=== PATIENT | male | born 1950 | race Caucasian/White ===

== ENCOUNTER 2017-04-05 00:11 | Inpatient (IN) | payer MEDICARE, MEDICAID ==
[~2017-04-05] VITALS: Ht 175.3 cm; Wt 64.4 kg
[~2017-04-05 00:11] MED LIST: ALBU6.7H IH; CYCL10 PO; DIAZ10 PO; DOCU250C90 PO; FLUR30CA13 PO; IPRAHFA IH; IPRNEB IH; NITR.4 SL; PANT20TA12 PO; RANI150T12 PO; RISP2 PO; SENN-34 PO
[2017-04-05] MEDS ORDERED: QUEtiapine FUMARATE 100 MG TABLET PO PRN (02:30)
[2017-04-05 03:10] VITALS: BP 127/54
[2017-04-05] MEDS ORDERED: PNEUMOCOCCAL VACCINE POLYVALENT 0.5 ML VIAL [PPSV23] IM ONE (03:30)
[2017-04-05] MEDS ORDERED: INFLUENZA VIRUS VACCINE QVS 2017-18 (3YR+)/PF 60 MCG/0.5 ML SYRINGE IM ONE (03:30)
[2017-04-05] MEDS ORDERED: -PHARMACY VACCINE NOTE- MISC ONE ×2 (03:30)
[2017-04-05] MEDS ORDERED: LOPERAMIDE HCL 2 MG CAPSULE PO PRN (07:15)
[2017-04-05] MEDS ORDERED: PETROLATUM,WHITE 71 GM JELLY TP PRN (07:15)
[2017-04-05] MEDS ORDERED: ACETAMINOPHEN 325 MG TABLET PO PRN (07:15)
[2017-04-05] MEDS ORDERED: BENZOCAINE/MENTHOL LOZENGE MM PRN (07:15)
[2017-04-05] MEDS ORDERED: ONDANSETRON HCL 4 MG TABLET PO PRN (07:15)
[2017-04-05] MEDS ORDERED: MAG HYDROX/AL HYDROX/SIMETH ES 30 ML SUSPENSION UDCUP PO PRN (07:15)
[2017-04-05] MEDS ORDERED: MAGNESIUM HYDROXIDE SUSPENSION 30 ML UDCUP PO PRN (07:15)
[2017-04-05] MEDS ORDERED: BACITRACIN 28.4 GM OINTMENT TP PRN (07:15)
[2017-04-05] MEDS ORDERED: NITROGLYCERIN 0.4 MG SUBLINGUAL TABLET #25 SL PRN (07:15)
[2017-04-05] MEDS ORDERED: CloNIDine HCL 0.1 MG TABLET PO PRN (07:15)
[2017-04-05 07:52] LABS: BASOPHILS % (AUTO) 0.9 % (0.0-2.0); EOSINOPHILS % (AUTO) 2.2 % (1.0-6.0); HEMATOCRIT 37.8 % (41-53); LYMPHOCYTES % (AUTO) 50.1 % (22.0-44.0); MEAN CORPUSCULAR HEMOGLOBIN 33.8 pg (26.0-34.0); MEAN CORPUSCULAR HGB CONC 34.5 G/dL (31.0-37.0); MEAN CORPUSCULAR VOLUME 98 fL (80-100); MONOCYTES # (AUTO) 0.3 K/uL (0.1-1.0); MONOCYTES % (AUTO) 7.1 % (2.0-9.0); NEUTROPHILS # (AUTO) 1.6 K/uL (1.8-7.7); NEUTROPHILS % (AUTO) 39.7 % (40.0-70.0); PLATELET COUNT (AUTO) 237 K/uL (150-450); RED BLOOD CELL COUNT(AUTO) 3.85 MIL/uL (4.50-5.90); RED CELL DISTRIBUTION WIDTH 14.5 % (11.5-14.5)
[2017-04-05 08:04] LABS: HEMOGLOBIN A1C 5.6 % (4.5-6.2)
[2017-04-05 08:28] LABS: ALANINE AMINOTRANSFERASE 31 U/L (12-78); ALBUMIN 3.1 g/dL (3.4-5.0); ANION GAP 3 mmol/L (8-16); ASPARTATE AMINOTRANSFERASE 24 U/L (15-37); BILIRUBIN,TOTAL 0.4 mg/dL (0.1-1.0); CALCIUM, TOTAL 8.4 mg/dL (8.8-10.5); CARBON DIOXIDE 30 mmol/L (22-29); CHLORIDE 107 mmol/L (98-107); CHOL/HDL RATIO 2.2 (4.2-7.3); CREATININE 0.81 mg/dL (0.60-1.30); GLOMERULAR FILTR. RATE CALC > 60 mL/min (>60); POTASSIUM 4.4 mmol/L (3.5-5.1); SODIUM SERUM 140 mmol/L (136-145); THYROID STIMULATING HORMONE 1.25 uIU/mL (0.36-3.74); TOTAL PROTEIN, SERUM 5.3 g/dL (6.4-8.2); UREA NITROGEN, BLOOD 17 mg/dL (7-18)
[2017-04-05] MEDS ORDERED: DOCUSATE SODIUM 100 MG CAPSULE PO SCH (09:00)
[2017-04-05] MEDS: RANITIDINE HCL 150 MG TABLET PO SCH ×2 (09:00→16:26)
[2017-04-05] MEDS: OMEGA-3/DHA/EPA/FISH OIL 500 MG CAPSULE PO SCH (09:00)
[2017-04-05] MEDS ORDERED: FLUR30CA13 PO (09:12)
[2017-04-05] MEDS ORDERED: DICY10 PO (09:12)
[2017-04-05] MEDS ORDERED: RISP1 PO (09:12)
[2017-04-05] MEDS ORDERED: SENN-175 PO (09:12)
[2017-04-05] MEDS ORDERED: LOPE2 PO (09:12)
[2017-04-05] MEDS ORDERED: RANI150T7 PO (09:12)
[2017-04-05] MEDS ORDERED: PANT40TA25 PO (09:12)
[2017-04-05] MEDS ORDERED: ALBU8HFA IH (09:12)
[2017-04-05] MEDS ORDERED: CYCL10 PO (09:12)
[2017-04-05] MEDS ORDERED: DIAZ10 PO (09:12)
[2017-04-05] MEDS ORDERED: NITR.4 SL (09:12)
[2017-04-05] MEDS ORDERED: DSS100 PO (09:12)
[2017-04-05] MEDS: RisperiDONE 1 MG TABLET PO SCH (16:26)
[2017-04-05] MEDS ORDERED: ALBUTEROL SULFATE 2.5 MG/0.5 ML NEB SOLUTION NEB PRN (19:15)
[2017-04-05] MEDS ORDERED: IPRATROPIUM BROMIDE 0.5 MG/2.5 ML NEB SOLUTION NEB PRN (19:15)
[2017-04-06] MEDS: ALBUTEROL SULFATE HFA 90 MCG/PUFF 8 GM INHALER IH PRN (05:41)
[2017-04-06] MEDS ORDERED: LORazepam 2 MG/ML VIAL IM ONE (07:15)
[2017-04-06] MEDS ORDERED: DiphenhydrAMINE HCL 50 MG/ML VIAL IM ONE (07:15)
[2017-04-06] MEDS: OMEGA-3/DHA/EPA/FISH OIL 500 MG CAPSULE PO SCH (10:00)
[2017-04-06] MEDS: RANITIDINE HCL 150 MG TABLET PO SCH ×2 (10:00→17:00)
[2017-04-06] MEDS: IPRATROPIUM BROMIDE HFA 17 MCG/PUFF 12.9 GM INHALER IH SCH ×2 (10:00→17:00)
[2017-04-06] MEDS: PANTOPRAZOLE SODIUM 40 MG DR TABLET PO SCH (10:00)
[2017-04-06] MEDS: DICYCLOMINE HCL 10 MG CAPSULE PO SCH ×3 (10:00→17:00)
[2017-04-06] MEDS: RisperiDONE 1 MG TABLET PO SCH ×2 (10:00→17:00)
[2017-04-06] MEDS: DOCUSATE SODIUM 250 MG CAPSULE PO SCH ×2 (10:00→17:00)
[2017-04-06] MEDS: SENNA 187 MG TABLET PO SCH ×2 (10:00→17:00)
[2017-04-06 16:00] VITALS: BP 116/71
[2017-04-07 06:38] VITALS: BP 118/73
[2017-04-07 08:23] VITALS: BP 91/57
[2017-04-07] MEDS: PANTOPRAZOLE SODIUM 40 MG DR TABLET PO SCH (08:35)
[2017-04-07] MEDS: DOCUSATE SODIUM 250 MG CAPSULE PO SCH ×2 (08:35→17:00)
[2017-04-07] MEDS: SENNA 187 MG TABLET PO SCH ×2 (08:35→16:59)
[2017-04-07] MEDS: RANITIDINE HCL 150 MG TABLET PO SCH ×2 (08:35→17:00)
[2017-04-07] MEDS: DICYCLOMINE HCL 10 MG CAPSULE PO SCH ×3 (08:35→17:00)
[2017-04-07] MEDS: OMEGA-3/DHA/EPA/FISH OIL 500 MG CAPSULE PO SCH (08:35)
[2017-04-07] MEDS: RisperiDONE 1 MG TABLET PO SCH ×2 (08:37→17:00)
[2017-04-07] MEDS: IPRATROPIUM BROMIDE HFA 17 MCG/PUFF 12.9 GM INHALER IH SCH ×2 (08:43→17:00)
[2017-04-07 16:00] VITALS: BP 110/67
[2017-04-07] MEDS: ALBUTEROL SULFATE HFA 90 MCG/PUFF 8 GM INHALER IH PRN (17:01)
[2017-04-07] MEDS: ZOLPIDEM TARTRATE 10 MG TABLET PO PRN (20:27)
[2017-04-07] MEDS: IBUPROFEN 600 MG TABLET PO PRN (22:03)
[2017-04-08 03:30] VITALS: BP 144/69
[2017-04-08] MEDS: ALBUTEROL SULFATE HFA 90 MCG/PUFF 8 GM INHALER IH PRN (03:35)
[2017-04-08 08:01] VITALS: BP 127/81
[2017-04-08] MEDS: SENNA 187 MG TABLET PO SCH ×2 (08:05→16:02)
[2017-04-08] MEDS: PANTOPRAZOLE SODIUM 40 MG DR TABLET PO SCH (08:05)
[2017-04-08] MEDS: DOCUSATE SODIUM 250 MG CAPSULE PO SCH ×2 (08:05→16:01)
[2017-04-08] MEDS: OMEGA-3/DHA/EPA/FISH OIL 500 MG CAPSULE PO SCH (08:05)
[2017-04-08] MEDS: IPRATROPIUM BROMIDE HFA 17 MCG/PUFF 12.9 GM INHALER IH SCH ×2 (08:05→16:03)
[2017-04-08] MEDS: RisperiDONE 1 MG TABLET PO SCH ×2 (08:05→16:01)
[2017-04-08] MEDS: RANITIDINE HCL 150 MG TABLET PO SCH ×2 (08:05→16:01)
[2017-04-08] MEDS: DICYCLOMINE HCL 10 MG CAPSULE PO SCH ×3 (08:05→16:02)
[2017-04-08 16:06] VITALS: BP 130/66
[2017-04-08] MEDS: ZOLPIDEM TARTRATE 10 MG TABLET PO PRN (20:00)
[2017-04-08] MEDS: IBUPROFEN 600 MG TABLET PO PRN (23:42)
[2017-04-09 00:31] VITALS: BP 100/71
[2017-04-09] MEDS: ALBUTEROL SULFATE HFA 90 MCG/PUFF 8 GM INHALER IH PRN (04:31)
[2017-04-09] MEDS: OMEGA-3/DHA/EPA/FISH OIL 500 MG CAPSULE PO SCH (08:22)
[2017-04-09] MEDS: PANTOPRAZOLE SODIUM 40 MG DR TABLET PO SCH (08:22)
[2017-04-09] MEDS: SENNA 187 MG TABLET PO SCH ×2 (08:22→16:35)
[2017-04-09] MEDS: RANITIDINE HCL 150 MG TABLET PO SCH ×2 (08:22→16:34)
[2017-04-09] MEDS: DOCUSATE SODIUM 250 MG CAPSULE PO SCH ×2 (08:22→16:34)
[2017-04-09] MEDS: RisperiDONE 1 MG TABLET PO SCH ×2 (08:22→16:35)
[2017-04-09] MEDS: DICYCLOMINE HCL 10 MG CAPSULE PO SCH ×3 (08:22→16:34)
[2017-04-09] MEDS: IPRATROPIUM BROMIDE HFA 17 MCG/PUFF 12.9 GM INHALER IH SCH ×2 (08:23→16:35)
[2017-04-09 08:29] VITALS: BP 110/62
[2017-04-09 16:00] VITALS: BP 127/67
[2017-04-10 01:09] VITALS: BP 100/68
[2017-04-10 08:23] VITALS: BP 117/69
[2017-04-10] MEDS ORDERED: DOCU250C91 PO (09:26)
[2017-04-10] MEDS ORDERED: RISP1TAB89 PO (09:27)
[2017-04-10] MEDS ORDERED: OMEG-12 PO (09:27)
[2017-04-10] MEDS ORDERED: PANT40TA25 PO (09:27)
[2017-04-10] MEDS ORDERED: SENN8.6T90 PO (09:28)
[2017-04-10] MEDS ORDERED: RANI150T12 PO (09:31)
[2017-04-10] MEDS: SENNA 187 MG TABLET PO SCH (09:47)
[2017-04-10] MEDS: OMEGA-3/DHA/EPA/FISH OIL 500 MG CAPSULE PO SCH (09:47)
[2017-04-10] MEDS: DICYCLOMINE HCL 10 MG CAPSULE PO SCH ×2 (09:47→13:09)
[2017-04-10] MEDS: IPRATROPIUM BROMIDE HFA 17 MCG/PUFF 12.9 GM INHALER IH SCH (09:47)
[2017-04-10] MEDS: PANTOPRAZOLE SODIUM 40 MG DR TABLET PO SCH (09:47)
[2017-04-10] MEDS: RANITIDINE HCL 150 MG TABLET PO SCH (09:47)
[2017-04-10] MEDS: RisperiDONE 1 MG TABLET PO SCH (09:48)
[2017-04-10] MEDS: DOCUSATE SODIUM 250 MG CAPSULE PO SCH (09:48)
== END 2017-04-10 13:15 | disposition home or self-care (01) | DRG 750 ==
LOC: B2S 02:38 → B3A 04-06 07:30
DX: F25.0 Schizoaffective disorder, bipolar type (principal); J44.9 Chronic obstructive pulmonary disease, unspecified; R45.851 Suicidal ideations; Z59.0 Homelessness; I10 Essential (primary) hypertension; E78.1 Pure hyperglyceridemia; E78.5 Hyperlipidemia, unspecified; F12.90 Cannabis use, unspecified, uncomplicated; F17.200 Nicotine dependence, unspecified, uncomplicated; G47.00 Insomnia, unspecified; I25.10 Atherosclerotic heart disease of native coronary artery without angina pectoris; K21.9 Gastro-esophageal reflux disease without esophagitis; K59.00 Constipation, unspecified; Z71.6 Tobacco abuse counseling; Z71.51 Drug abuse counseling and surveillance of drug abuser; Z79.899 Other long term (current) drug therapy; Z91.5 Personal history of self-harm; Z88.8 Allergy status to other drugs, medicaments and biological substances; Z28.21 Immunization not carried out because of patient refusal
CPT/HCPCS: 83036; 84439; 84443; J1200; J2060; J3230; J3535

== ENCOUNTER 2018-08-01 10:51 | Day surgery (SDC) | payer MEDICARE, OTHER ==
[~2018-08-01] VITALS: Ht 170.2 cm; Wt 70.9 kg
[~2018-08-01 10:51] MED LIST changes: -ALBU6.7H IH; +ALBU8HFA IH; -CYCL10 PO; +DICY10 PO; -DOCU250C90 PO; -FLUR30CA13 PO; -IPRNEB IH; +LORA2TAB2 PO; -NITR.4 SL; +OMEG-12 PO; -PANT20TA12 PO; +PANT40TA25 PO; +RANI-248 PO; -RANI150T12 PO; +RISP1TAB89 PO; -RISP2 PO; -SENN-34 PO; +SENN8.6T90 PO; +SODIUM CHLORIDE 0.9% 1,000 ML IV ONE; +VITAD1000 PO
[2018-08-01] MEDS ORDERED: LIDOCAINE/PF 2% 5 ML VIAL IM ONE (10:52)
[2018-08-01] MEDS ORDERED: PROPOFOL 1% 20 ML VIAL IVP ONE (10:52)
[2018-08-01] MEDS ORDERED: MIDAZOLAM HCL 2 MG/2 ML VIAL IVP ONE (10:52)
[2018-08-01] MEDS ORDERED: SODIUM CHLORIDE 0.9% 1,000 ML IV ONE ×2 (11:30→13:52)
[2018-08-01] MEDS ORDERED: RISP2 PO (11:46)
[2018-08-01] MEDS ORDERED: FLUR30CA13 PO (11:47)
[2018-08-01] MEDS ORDERED: PANT40TA25 PO (11:49)
[2018-08-01] MEDS ORDERED: DICY10 PO (11:49)
[2018-08-01] MEDS ORDERED: CHOL50004 PO (11:51)
[2018-08-01] MEDS ORDERED: IPRAHFA IH (11:53)
[2018-08-01] MEDS ORDERED: CARB15DR OU (11:53)
[2018-08-01] MEDS ORDERED: ALBU8HFA IH (11:53)
[2018-08-01] MEDS ORDERED: BOTULINUM TOXIN TYPE A 100 UNITS/VIAL MISC ONE (12:15)
== END 2018-08-01 15:40 | disposition home or self-care (01) ==
LOC: SURGERY 10:51
PROVIDERS: ATTEND Student in an Organized Health Care Education/Training Program
DX: K29.50 Unspecified chronic gastritis without bleeding (principal); K21.0 Gastro-esophageal reflux disease with esophagitis; K22.4 Dyskinesia of esophagus; K31.9 Disease of stomach and duodenum, unspecified; Z88.5 Allergy status to narcotic agent; K21.9 Gastro-esophageal reflux disease without esophagitis; J44.9 Chronic obstructive pulmonary disease, unspecified; G89.29 Other chronic pain; M54.5 Low back pain; Z72.0 Tobacco use; Z72.89 Other problems related to lifestyle; Z98.890 Other specified postprocedural states; Z79.899 Other long term (current) drug therapy; Z86.74 Personal history of sudden cardiac arrest
CPT/HCPCS: 43236; 43239; 88305; 88312; 88313; J0585; J2250; J2704; J3490; J7030

== ENCOUNTER 2019-01-09 11:21 | Day surgery (SDC) | payer MEDICARE, OTHER ==
[~2019-01-09] VITALS: Ht 172.7 cm; Wt 71.0 kg
[~2019-01-09 11:21] MED LIST changes: +CARB15DR OU; +CHOL50004 PO; +FLUR30CA13 PO; -LORA2TAB2 PO; -OMEG-12 PO; -RANI-248 PO; +RANI-662 PO; -RISP1TAB89 PO; +RISP2 PO; -SODIUM CHLORIDE 0.9% 1,000 ML IV ONE; -VITAD1000 PO
[2019-01-09] MEDS ORDERED: SODIUM CHLORIDE 0.9% 1,000 ML IV ONE ×2 (11:27→11:30)
[2019-01-09] MEDS ORDERED: BOTULINUM TOXIN TYPE A 100 UNITS/VIAL MISC ONE ×3 (12:30→12:45)
[2019-01-09] MEDS ORDERED: FentaNYL CITRATE-PF 100 MCG/2 ML VIAL ONE (12:40)
[2019-01-09] MEDS ORDERED: MIDAZOLAM HCL 5 MG/ML VIAL ONE ×2 (12:40→13:59)
== END 2019-01-09 15:40 | disposition home or self-care (01) ==
LOC: SURGERY 11:21
PROVIDERS: ATTEND Student in an Organized Health Care Education/Training Program
DX: K29.50 Unspecified chronic gastritis without bleeding (principal); K21.0 Gastro-esophageal reflux disease with esophagitis; K44.9 Diaphragmatic hernia without obstruction or gangrene; J44.9 Chronic obstructive pulmonary disease, unspecified; K22.4 Dyskinesia of esophagus; F31.9 Bipolar disorder, unspecified; G89.29 Other chronic pain; F17.210 Nicotine dependence, cigarettes, uncomplicated; Z86.010 Personal history of colon polyps; Z79.899 Other long term (current) drug therapy; Z98.41 Cataract extraction status, right eye; Z98.42 Cataract extraction status, left eye; Z98.890 Other specified postprocedural states
CPT/HCPCS: 43236; 93005; 99152; J0585; J2250; J3010; J7030

== ENCOUNTER 2021-10-12 09:06 | Inpatient (IN) | payer MEDICARE, MEDICAID ==
[~2021-10-12] VITALS: Ht 175.3 cm; Wt 68.2 kg
[~2021-10-12 09:06] MED LIST changes: +CHOL500013 PO; -CHOL50004 PO; +DICY-1 PO; -DICY10 PO; +PANT-31 PO; -PANT40TA25 PO; -RISP2 PO; +RISP2TAB45 PO
[2021-10-12 10:02] LABS: EOSINOPHILS % (AUTO) 0.6 % (1.0-6.0); HEMATOCRIT 39.1 % (41-53); HEMOGLOBIN 13.5 g/dL (13.5-17.5); LYMPHOCYTES # (AUTO) 1.9 K/uL (1.0-4.8); MEAN CORPUSCULAR HEMOGLOBIN 33.3 pg (26.0-34.0); MEAN CORPUSCULAR HGB CONC 34.6 G/dL (31.0-37.0); MEAN CORPUSCULAR VOLUME 96 fL (80-100); MONOCYTES # (AUTO) 0.3 K/uL (0.1-1.0); MONOCYTES % (AUTO) 6.8 % (2.0-9.0); NEUTROPHILS # (AUTO) 2.6 K/uL (1.8-7.7); NEUTROPHILS % (AUTO) 52.6 % (40.0-70.0); PLATELET COUNT (AUTO) 269 K/uL (150-450); RED BLOOD CELL COUNT(AUTO) 4.06 MIL/uL (4.50-5.90); RED CELL DISTRIBUTION WIDTH 13.9 % (11.5-14.5)
[2021-10-12 10:16] LABS: ANION GAP 9 mmol/L (8-16); CALCIUM, TOTAL 9.2 mg/dL (8.8-10.5); CARBON DIOXIDE 28 mmol/L (22-29); CHLORIDE 104 mmol/L (98-107); CREATININE 0.83 mg/dL (0.60-1.30); GLOMERULAR FILTR. RATE CALC > 60 mL/min (>60); GLUCOSE,RANDOM 102 mg/dL (70-110); POTASSIUM 3.9 mmol/L (3.5-5.1); SODIUM SERUM 141 mmol/L (136-145); UREA NITROGEN, BLOOD 17 mg/dL (7-18)
[2021-10-12 10:23] LABS: ALANINE AMINOTRANSFERASE 17 U/L (12-78); ALBUMIN 3.8 g/dL (3.4-5.0); ALKALINE PHOSPHATASE 71 U/L (46-116); ASPARTATE AMINOTRANSFERASE 17 U/L (15-37); BILIRUBIN,TOTAL 0.4 mg/dL (0.1-1.0); TOTAL PROTEIN, SERUM 7.1 g/dL (6.4-8.2)
[2021-10-12 10:27] LABS: AMPHET/METH SCREEN,URINE NEGATIVE (NEGATIVE); BARBITURATE SCREEN, URINE NEGATIVE (NEGATIVE); BENZODIAZEPINES SCREEN,URINE NEGATIVE (NEGATIVE); CANNABINOID SCREEN,URINE POSITIVE (NEGATIVE); COCAINE SCREEN,URINE NEGATIVE (NEGATIVE); METHADONE SCREEN, URINE NEGATIVE (NEGATIVE); OPIATE SCREEN,URINE NEGATIVE (NEGATIVE)
[2021-10-12 10:28] LABS: PHENCYCLIDINE SCREEN,URINE NEGATIVE (NEGATIVE)
[2021-10-12 12:29] LABS: COVID AG,FIA SOURCE NASOPHARYNGEAL
[2021-10-12] MEDS ORDERED: QUEtiapine FUMARATE 25 MG TABLET PO PRN (13:45)
[2021-10-12 16:07] VITALS: BP 141/81
[2021-10-12] MEDS ORDERED: ALBUTEROL SULFATE HFA 90 MCG/PUFF 8 GM INHALER IH PRN (17:00)
[2021-10-12] MEDS ORDERED: ACETAMINOPHEN 325 MG TABLET PO PRN (18:30)
[2021-10-12] MEDS: LORazepam 2 MG TABLET PO PRN (21:21)
[2021-10-12] MEDS: IPRATROPIUM BROMIDE HFA 17 MCG/PUFF 12.9 GM INHALER IH SCH (21:42)
[2021-10-13 06:12] VITALS: BP 137/70
[2021-10-13] MEDS: IPRATROPIUM BROMIDE HFA 17 MCG/PUFF 12.9 GM INHALER IH SCH ×2 (08:45→17:53)
[2021-10-13] MEDS ORDERED: MAGNESIUM HYDROXIDE SUSPENSION 30 ML UDCUP PO PRN (11:45)
[2021-10-13] MEDS ORDERED: NICOTINE 14 MG/24 HOUR PATCH TD PRN (11:45)
[2021-10-13] MEDS ORDERED: ONDANSETRON HCL 4 MG TABLET PO PRN (11:45)
[2021-10-13] MEDS ORDERED: ALBUTEROL SULFATE HFA 90 MCG/PUFF 8 GM INHALER IH PRN (11:45)
[2021-10-13] MEDS ORDERED: MAG HYDROX/AL HYDROX/SIMETH ES 30 ML SUSPENSION UDCUP PO PRN (11:45)
[2021-10-13] MEDS ORDERED: GuaiFENesin/D-METHORPHAN [SUGAR-FREE] 200-20MG/10 ML SYRUP UDCUP PO PRN (11:45)
[2021-10-13] MEDS ORDERED: CloNIDine HCL 0.1 MG TABLET PO PRN (11:45)
[2021-10-13] MEDS ORDERED: DOCUSATE SODIUM 100 MG CAPSULE PO PRN (11:45)
[2021-10-13] MEDS ORDERED: LOPERAMIDE HCL 2 MG CAPSULE PO PRN (11:45)
[2021-10-13] MEDS ORDERED: PETROLATUM,WHITE 28 GM JELLY TP PRN (11:45)
[2021-10-13] MEDS ORDERED: ACETAMINOPHEN 325 MG TABLET PO PRN (11:45)
[2021-10-13] MEDS: FAMOTIDINE 20 MG TABLET PO SCH (12:15)
[2021-10-13] MEDS: DICYCLOMINE HCL 10 MG CAPSULE PO SCH ×3 (13:00→20:42)
[2021-10-13] MEDS: LORazepam 2 MG TABLET PO PRN ×2 (13:46→18:10)
[2021-10-13 16:09] VITALS: BP 128/60
[2021-10-13] MEDS: RisperiDONE 2 MG TABLET PO SCH (17:15)
[2021-10-13] MEDS: PANTOPRAZOLE SODIUM 40 MG DR TABLET PO SCH (17:17)
[2021-10-13] MEDS: SENNA 187 MG TABLET PO SCH (17:18)
[2021-10-14 08:16] VITALS: BP 130/60
[2021-10-14] MEDS: IPRATROPIUM BROMIDE HFA 17 MCG/PUFF 12.9 GM INHALER IH SCH ×2 (08:17→17:00)
[2021-10-14] MEDS: DICYCLOMINE HCL 10 MG CAPSULE PO SCH ×4 (08:18→20:32)
[2021-10-14] MEDS: SENNA 187 MG TABLET PO SCH ×2 (08:18→17:00)
[2021-10-14] MEDS: CHOLECALCIFEROL (VIT D3) 5,000 [125 MCG] UNITS CAPSULE PO SCH (08:18)
[2021-10-14] MEDS: PANTOPRAZOLE SODIUM 40 MG DR TABLET PO SCH ×2 (08:19→17:00)
[2021-10-14] MEDS: RisperiDONE 2 MG TABLET PO SCH ×2 (09:00→17:00)
[2021-10-14] MEDS: FAMOTIDINE 20 MG TABLET PO SCH (09:00)
[2021-10-14] MEDS: LORazepam 2 MG TABLET PO PRN ×2 (11:46→19:36)
[2021-10-14 16:04] VITALS: BP 108/66
[2021-10-15] MEDS: LORazepam 2 MG TABLET PO PRN ×4 (00:33→21:55)
[2021-10-15 00:51] VITALS: BP 121/67
[2021-10-15] MEDS: IBUPROFEN 400 MG TABLET PO PRN (06:53)
[2021-10-15 08:12] VITALS: BP 115/54
[2021-10-15] MEDS: IPRATROPIUM BROMIDE HFA 17 MCG/PUFF 12.9 GM INHALER IH SCH ×2 (08:30→17:24)
[2021-10-15] MEDS: SENNA 187 MG TABLET PO SCH ×2 (08:31→17:25)
[2021-10-15] MEDS: DICYCLOMINE HCL 10 MG CAPSULE PO SCH ×4 (08:31→20:07)
[2021-10-15] MEDS: CHOLECALCIFEROL (VIT D3) 5,000 [125 MCG] UNITS CAPSULE PO SCH (08:31)
[2021-10-15] MEDS: PANTOPRAZOLE SODIUM 40 MG DR TABLET PO SCH ×2 (08:32→17:24)
[2021-10-15] MEDS: FAMOTIDINE 20 MG TABLET PO SCH (09:00)
[2021-10-15] MEDS: RisperiDONE 2 MG TABLET PO SCH ×2 (09:00→17:25)
[2021-10-15 16:02] VITALS: BP 112/72
[2021-10-15] MEDS: ZOLPIDEM TARTRATE 10 MG TABLET PO PRN (20:07)
[2021-10-16] MEDS: IBUPROFEN 400 MG TABLET PO PRN (04:13)
[2021-10-16] MEDS: PANTOPRAZOLE SODIUM 40 MG DR TABLET PO SCH ×3 (09:00→17:05)
[2021-10-16] MEDS: CHOLECALCIFEROL (VIT D3) 5,000 [125 MCG] UNITS CAPSULE PO SCH ×2 (09:00→10:00)
[2021-10-16] MEDS: DICYCLOMINE HCL 10 MG CAPSULE PO SCH ×5 (09:00→20:05)
[2021-10-16] MEDS: FAMOTIDINE 20 MG TABLET PO SCH (09:00)
[2021-10-16] MEDS: SENNA 187 MG TABLET PO SCH ×3 (09:00→17:06)
[2021-10-16] MEDS: IPRATROPIUM BROMIDE HFA 17 MCG/PUFF 12.9 GM INHALER IH SCH ×2 (09:00→17:05)
[2021-10-16] MEDS: RisperiDONE 2 MG TABLET PO SCH ×2 (09:00→16:05)
[2021-10-16] MEDS: LORazepam 2 MG TABLET PO PRN ×3 (11:10→20:30)
[2021-10-16 16:03] VITALS: BP 114/78
[2021-10-16] MEDS: ZOLPIDEM TARTRATE 10 MG TABLET PO PRN (21:01)
[2021-10-17 03:54] VITALS: BP 110/73
[2021-10-17 08:28] VITALS: BP 120/68
[2021-10-17] MEDS: LORazepam 2 MG TABLET PO PRN ×3 (08:30→20:23)
[2021-10-17] MEDS: SENNA 187 MG TABLET PO SCH ×2 (08:49→16:30)
[2021-10-17] MEDS: CHOLECALCIFEROL (VIT D3) 5,000 [125 MCG] UNITS CAPSULE PO SCH (08:49)
[2021-10-17] MEDS: IPRATROPIUM BROMIDE HFA 17 MCG/PUFF 12.9 GM INHALER IH SCH ×2 (08:49→16:31)
[2021-10-17] MEDS: FAMOTIDINE 20 MG TABLET PO SCH (08:50)
[2021-10-17] MEDS: RisperiDONE 2 MG TABLET PO SCH ×2 (08:50→16:30)
[2021-10-17] MEDS: PANTOPRAZOLE SODIUM 40 MG DR TABLET PO SCH ×2 (08:50→16:31)
[2021-10-17] MEDS: DICYCLOMINE HCL 10 MG CAPSULE PO SCH ×4 (08:50→20:24)
[2021-10-17 16:05] VITALS: BP 128/78
[2021-10-18 05:08] VITALS: BP 117/68
[2021-10-18 08:21] VITALS: BP 112/64
[2021-10-18] MEDS: RisperiDONE 2 MG TABLET PO SCH ×2 (08:57→17:00)
[2021-10-18] MEDS: CHOLECALCIFEROL (VIT D3) 5,000 [125 MCG] UNITS CAPSULE PO SCH (08:57)
[2021-10-18] MEDS: SENNA 187 MG TABLET PO SCH ×2 (08:57→17:00)
[2021-10-18] MEDS: IPRATROPIUM BROMIDE HFA 17 MCG/PUFF 12.9 GM INHALER IH SCH ×2 (08:57→17:00)
[2021-10-18] MEDS: PANTOPRAZOLE SODIUM 40 MG DR TABLET PO SCH ×2 (08:57→17:00)
[2021-10-18] MEDS: FAMOTIDINE 20 MG TABLET PO SCH (09:00)
[2021-10-18] MEDS: DICYCLOMINE HCL 10 MG CAPSULE PO SCH ×3 (09:00→17:00)
[2021-10-18] MEDS: LORazepam 2 MG TABLET PO PRN (12:34)
[2021-10-18 16:08] VITALS: BP 110/62
[2021-10-18] MEDS ORDERED: RISP2TAB86 PO (16:30)
== END 2021-10-18 17:36 | disposition home or self-care (01) | DRG 750 ==
LOC: EMS 09:06 → B3A 13:57
PROVIDERS: ADMIT Psychiatry & Neurology Child & Adolescent Psychiatry; ATTEND Psychiatry & Neurology Child & Adolescent Psychiatry
DX: F25.0 Schizoaffective disorder, bipolar type (principal); E11.9 Type 2 diabetes mellitus without complications; R45.851 Suicidal ideations; Z20.822 Contact with and (suspected) exposure to COVID-19; E78.5 Hyperlipidemia, unspecified; F10.10 Alcohol abuse, uncomplicated; F43.10 Post-traumatic stress disorder, unspecified; I25.10 Atherosclerotic heart disease of native coronary artery without angina pectoris; J44.9 Chronic obstructive pulmonary disease, unspecified; M19.90 Unspecified osteoarthritis, unspecified site; F17.210 Nicotine dependence, cigarettes, uncomplicated; Z88.8 Allergy status to other drugs, medicaments and biological substances; Z88.5 Allergy status to narcotic agent; Z88.6 Allergy status to analgesic agent; Z91.013 Allergy to seafood; Z71.41 Alcohol abuse counseling and surveillance of alcoholic
CPT/HCPCS: 80053; 85025; 99285; G0480; J3535